=== PATIENT | male | born 1980 | race Caucasian/White ===

== ENCOUNTER 2022-02-25 13:05 | Observation (INO) ==
[2022-02-25 13:42] LABS: Basophils # 0.1 10*3/uL (0.0-0.2); Basophils % 0.6 % (0.0-0.8); Eosinophils # 0.2 10*3/uL (0.0-0.87); Eosinophils % 1.6 % (0.00-10.9); Hematocrit 48.9 VOL% (42.0-52.0); Hemoglobin 16.1 GM/DL (14.0-18.0); Immature Granulocytes % 0.2 %; Immature Granulocytes Absolute 0.02 #; Lymphocytes # 2.7 10*3/uL (1.4-4.0); Lymphocytes % 29.6 % (21.2-54.2); Mean Corpuscular HGB Conc 32.9 GM/DL (32-36); Mean Corpuscular Volume 92.4 FL (87-102); Mean Platelet Volume 10.3 FL (9.6-12.0); Monocytes # 0.5 10*3/uL (0.11-0.8); Monocytes % 5.7 % (1.7-12.7); Neutrophils % 62.3 % (38.7-73.9); Platelet Count 258 T/CUMM (130-400); Red Blood Count 5.29 MC/CUMM (3.8-5.5); Red Cell Distribution Width 12.9 % (9.3-17.3); White Blood Count 9.3 T/CUMM (4-12)
[2022-02-25 14:02] LABS: Albumin 4.1 G/DL (3.4-5.0); Bilirubin,Total 0.6 MG/DL (0.20-1.00); Calcium 9.1 MG/DL (8.5-10.1); Osmolality,Calculated 274.7 MOS/KG (273-304); Potassium 4.2 MMOL/L (3.5-5.1); Total Protein 6.9 G/DL (6.4-8.2)
[2022-02-25 14:42] LABS: Barbiturates Screen,Urine Negative (Negative); Benzodiazepines Screen,Urine Positive (Negative); Cannabinoid Screen,Urine Negative (Negative); Opiate Screen,Urine Negative (Negative); Phencyclidine Screen,Urine Negative (Negative)
[2022-02-25] MEDS ORDERED: BISACODYL 5 MG TABLET PO PRN (15:43)
[2022-02-25] MEDS ORDERED: GLUCAGON 1 MG VIAL IM PRN (15:43)
[2022-02-25] MEDS ORDERED: ALUM/MAG/SIMETH/LIDO VISC 1:1 30 ML BOTTLE PO PRN (15:43)
[2022-02-25] MEDS ORDERED: MAGNESIUM SULF RIDER 2 GM/50 ML PREMIX IV PRN (15:43)
[2022-02-25] MEDS ORDERED: MAGNESIUM SULF RIDER 4 GM/100 ML PREMIX IV PRN (15:43)
[2022-02-25] MEDS ORDERED: ONDANSETRON 4 MG/2 ML VIAL IV PRN (15:43)
[2022-02-25] MEDS ORDERED: POTASSIUM CHLORIDE 20 MEQ TABLET PO PRN (16:14)
[2022-02-25] MEDS ORDERED: DEXTROSE 10% 250 ML BAG IV PRN (16:33)
[2022-02-25] MEDS ORDERED: ALPRAZolam 0.5 MG TABLET PO SCH (21:00)
[2022-02-25] MEDS ORDERED: ALPRAZOLAM 1 MG PO SCH (21:00)
[2022-02-25] MEDS ORDERED: ENOXAPARIN 40 MG/0.4 ML SYRINGE SUBCUT SCH (21:00)
[2022-02-25] MEDS ORDERED: SERTRALINE 25 MG TABLET PO SCH (21:00)
[2022-02-25] MEDS: PANTOPRAZOLE 40 MG TABLET PO SCH (21:43)
[2022-02-25] MEDS: ALPRAZolam 0.5 MG TABLET PO SCH (21:45)
[2022-02-26 05:53] LABS: Partial Thromboplastin Time 30.8 SECS (23.7-32.9)
[2022-02-26 06:14] LABS: Albumin 3.4 G/DL (3.4-5.0); Bilirubin,Total 0.4 MG/DL (0.20-1.00); Calcium 8.8 MG/DL (8.5-10.1); Osmolality,Calculated 276.5 MOS/KG (273-304); Potassium 4.3 MMOL/L (3.5-5.1); Risk Ratio 6.37; Thyroid Stimulating Hormone 2.09 uIU/ml (0.358-3.74); Total Protein 6.6 G/DL (6.4-8.2); VLDL Cholesterol 27.4 MG/DL
[2022-02-26] MEDS: PANTOPRAZOLE 40 MG TABLET PO SCH (08:09)
[2022-02-26] MEDS: ALPRAZolam 0.5 MG TABLET PO SCH (08:10)
[2022-02-26 08:54] VITALS: BP 100/68
[2022-02-26 09:00] LABS: Basophils # 0.1 10*3/uL (0.0-0.2); Basophils % 0.8 % (0.0-0.8); Eosinophils # 0.3 10*3/uL (0.0-0.87); Eosinophils % 3.8 % (0.00-10.9); Hematocrit 48.6 VOL% (42.0-52.0); Hemoglobin 15.7 GM/DL (14.0-18.0); Immature Granulocytes % 0.3 %; Immature Granulocytes Absolute 0.02 #; Lymphocytes # 3.7 10*3/uL (1.4-4.0); Lymphocytes % 49.5 % (21.2-54.2); Mean Corpuscular HGB Conc 32.3 GM/DL (32-36); Mean Corpuscular Volume 94.7 FL (87-102); Mean Platelet Volume 10.7 FL (9.6-12.0); Monocytes # 0.6 10*3/uL (0.11-0.8); Monocytes % 7.5 % (1.7-12.7); Neutrophils % 38.1 % (38.7-73.9); Platelet Count 244 T/CUMM (130-400); Red Blood Count 5.13 MC/CUMM (3.8-5.5); Red Cell Distribution Width 12.9 % (9.3-17.3); White Blood Count 7.4 T/CUMM (4-12)
[2022-02-26] MEDS ORDERED: PANTOPRAZOLE 40 MG TABLET PO SCH (09:00)
[2022-02-26] MEDS ORDERED: PARoxetine 20 MG TABLET PO SCH (09:00)
[2022-02-26 09:45] LABS: Eosinophils 6 % (0-10); Lymphocytes 46 % (20-55); Total Cells Counted 100
[2022-02-26 09:46] LABS: Platelet Estimate Normal
== END 2022-02-26 09:47 | disposition home or self-care (01) ==
LOC: N.TELES 13:05 → N.ED 13:05 → N.TELES 17:30
PROVIDERS: ADMIT Internal Medicine; ATTEND Internal Medicine